=== PATIENT | female | born 1975 ===

== ENCOUNTER 2018-01-01 10:48 | Emergency (ER) | payer BC ==
[2018-01-01] MEDS: ONDANSETRON (ODT) 4 MG TAB ODT (11:41)
[2018-01-01] MEDS: KETOROLAC 30 MG INJ IM (11:41)
== END 2018-01-01 12:35 | disposition home or self-care (01) ==
LOC: FTE 10:48
DX: R51 Headache (principal); R11.0 Nausea
CPT/HCPCS: 81025; 96372; 99284-25